=== PATIENT | male | born 2000 | race Caucasian/White ===

== ENCOUNTER 2019-10-21 15:18 | Emergency (ER) | payer MEDICAID, SELFPAY ==
[2019-10-21 15:32] VITALS: BP 133/91; PULSE 120; RESP 19; TEMP 36.9; O2SAT 96; BMI 29.7
--- NOTE | 2019-10-21 15:37 | HMH.EDUTC ---
[facility] [place] Clinical Impression: Pain, dental Disposition: Home, Self-Care Condition on Discharge: Good Instructions: Periodontal Disease (Alternative Therapy), Tooth Decay, DI for Tooth Decay, DI for Dental Pain Additional Instructions: Go Straight to Dr Smith office they area waiting on you for evaluation and further treatment Discharge instructions per Dr Smith Return if needed Straight to ER if any life threatening symptoms Referrals: Provider,Referral, MD [Primary Care Provider] - Vaibhav Smith [Referring] - (Dr. Vaibhav Smith Dentist - general education instructor [address] [place], [place] [id number] [phone]) Time of Disposition: 15:44 Medical Decision Making - Wilber Inquiry Pt receiving controlled substance: No Wilber was queried for this patient: No Vital Signs: 10/21/19 15:32 Temperature 98.4 F Temperature Source Oral Pulse Rate [Left Brachial] 120 H Respiratory Rate 19 Blood Pressure [Left Arm] 133/91 H Blood Pressure Mean [Left Arm] 105 Blood Pressure Source [Left Arm] Automatic Cuff Blood Pressure Position [Left Arm] Sitting 02 Sat by Pulse Oximetry 96 Oxygen Delivery Method Room Air - Physician Consults Physician Consulted: Luis Time: 15:48 Reason -: Other (Dental) Comment/Response: Spoke with Dr Smith and he advised to have patient come on down to his office for evaluation and further treatment he would wait on him Patient verbalized understanding and advised he would go straight to the office [facility] [place]PI - General Stated complaint: dental pain Time Seen by Provider: 10/21/19 15:37 Mode of Arrival: Ambulatory Source of Information: Patient Limitations: No Limitations Description of Symptoms (Recalled from Triage Doc. by RN): PATIENT C/O PAIN AND RECEDING GUMLINE TO BOTTOM FROM TEETH X 2 WEEKS WITH SORES ALSO PRESENT, STATES IT HAS GOTTEN WORSE OVER THE LAST FEW DAYS HEENT Symptoms (Recalled from RN notes): Yes Resp Symptoms (Recalled from RN notes): No Skin Symptoms (Recalled from RN notes): No MS Symptoms (Recalled from RN notes): No Functional Status (Recalled from RN notes): WNL - History of Present Illness Provider Complaint: Patient states that he noticed it looked like he had some decaying teeth and his gums was pulling away from his teeth States that he noticed about 2 weeks ago that his gums would pull away from his teeth when his lips move States that for the last couple of days it is worse and looks like he is having some decaying teeth State that he noticed also that he was having some canker sores on his lips so he came in - Related Data Home Medications Medication Instructions Recorded Confirmed No Known Home Medications 10/21/19 10/21/19 Allergies Allergy/AdvReac Type Severity Reaction Status Date / Time No Known Allergies Allergy Verified 10/11/19 14:36 - Worker's Comp Is this a Worker's Comp case?: No [facility] History - Hepatitis A Screen Drug use history?: No High risk sexual behaviors?: No History of sexually transmitted infection?: No Currently employed?: No Childcare worker?: No Do you have indoor plumbing?: Yes Do you have electricity?: Yes Attestation statement:: This patient has been screened for Hepatitis A risk factors. I have reviewed the patient's past medical history: Yes Medical History: Denies:: Diabetes Mellitus Type 2 Other Surgeries: Yes: No Previous Surgery - Social History Smoking Status: Current every day smoker # Packs/Day (cigarettes): 1 Alcohol Intake: never Substance Use Type: former substance user, opiates Occupational Status: other Comment: Vision r 20/20 l 20/20 b 20/20 Family Hx:: No significant family history ROS Obtained: Yes All systems reviewed & no additional complaints, Yes Systems reviewed as appropriate & no additional complaints - ENT Ears, Nose, Mouth, and Throat: Reports dental pain Physical Exam - General General appearance: alert - Expanded ENT Exam Teeth exam: Present: dental caries, other (g
[2019-10-21 15:46] VITALS: BP 133/91; PULSE 120; RESP 19; TEMP 36.9; O2SAT 96
== END 2019-10-21 15:48 | disposition home or self-care (01) ==
PROVIDERS: Emergency Provider Nurse Practitioner
DX: K08.89 Other specified disorders of teeth and supporting structures (principal); Z72.0 Tobacco use; F11.11 Opioid abuse, in remission
CPT/HCPCS: 99201